=== PATIENT | male | born 1985 | race Caucasian/White ===

== ENCOUNTER 2016-05-08 11:04 | Emergency (ER) | payer OTHER ==
[2016-05-08] MEDS ORDERED: HYDROmorphONE/DILAUDID 1 MG/ML SYR ONE (11:13)
[2016-05-08] MEDS ORDERED: HYDROmorphONE/DILAUDID 1 MG/ML SYR IVP ONE (11:18)
[2016-05-08] MEDS ORDERED: ONDANSETRON 4 MG/2 ML VIAL IVP ONE (11:19)
[2016-05-08] MEDS ORDERED: ceFAZolin 1 GM in NS 100 ML IV ONE (11:19)
--- NOTE | 2016-05-08 13:07 | EDPHY ---
H & P Stated Complaint: L 4th and 5th finger injury vs circular saw Time Seen by Provider: 05/08/16 11:12 HPI/ROS: Chief complaint: Left 4th and 5th finger lacerations History of present illness: This is a 30-year-old male who presents to the emergency department for evaluation of left 4th and 5th finger lacerations. Just prior to arrival he was using an electric circular saw when it slipped cutting him on the tips of both of the listed fingers. He reports significant pain. There has been bleeding from the wounds that has been controlled with a dressing. He does report some numbness in the 4th finger. He has not tried to move them. He denies other injuries. His tetanus is up-to-date. Review of systems: A 10 point review of systems was obtained and other than described above was negative - Personal History Current Tetanus/Diphtheria Vaccine: Yes Current Tetanus Diphtheria and Acellular Pertussis (TDAP): Yes Tetanus Vaccine Date: 2014 - Medical/Surgical History Hx Asthma: No Hx Chronic Respiratory Disease: No Hx Diabetes: No Hx Cardiac Disease: No Hx Renal Disease: No Hx Cirrhosis: No Hx Alcoholism: No Hx HIV/AIDS: No Hx Splenectomy or Spleen Trauma: No Other PMH: denies - Social History Smoking Status: Current every day smoker - Physical Exam Exam: General: Alert, nontoxic Skin: There is a 3 cm laceration to the left 4th finger that extends from the pad around to the edge of the nail bed. There is a 1 cm laceration to the pad of the left 5th finger. Inspection of the wound does not reveal foreign body. I do not visualize deep structures such as tendons. Musculoskeletal: Patient can flex and extend his fingers in the DIP, PIP and MCP joint of the left 4th and 5th finger. He is moving the other digits well. Vascular: Delayed capillary refill in the pad of the left 4th finger. Good capillary refill in the pad of the left 5th finger. Radial pulses 2+. Neurologic: Decreased sensation using light touch and two-point discrimination in the left 4th finger. Good sensation in the left 5th finger using light touch and two-point discrimination. Constitutional: Initial Vital Signs Temperature (C) 36.9 C 05/08/16 11:08 Heart Rate 99 05/08/16 11:08 Respiratory Rate 24 H 05/08/16 11:08 Blood Pressure 141/99 H 05/08/16 11:08 O2 Sat (%) 99 05/08/16 11:08 O2 Delivery Mode Room Air Allergies/Adverse Reactions: No Known Allergies Allergy (Unverified 05/08/16 11:17) Home Medications: Medication Instructions Recorded Cephalexin [Keflex (*)] 500 mg PO QID 5 Days 05/08/16 oxyCODONE IR [Oxycodone Ir (*)] 5 mg PO Q6 #10 tab 05/08/16 Medical Decision Making - Diagnostics Imaging: X-ray series of the left hand reveals a chip fracture of the distal phalanx the left 4th finger Procedures: Procedure: Laceration repair. Verbal consent was obtained from the patient. The 3 cm laceration on the left 4th finger was anesthetized in the usual fashion. The wound was irrigated, draped and explored to its base with a gloved finger. There were no deep structures involved. No tendon injury was identified. The wound was repaired with 5 0 Prolene, 15 simple interrupted sutures. The wound repair was complex requiring debridement of tissue in realignment of cosmetic structures. The procedure was performed by myself. Procedure: Laceration repair. Verbal consent was obtained from the patient. The 1 cm laceration on the left 5th finger was anesthetized in the usual fashion. The wound was irrigated, draped and explored to its base with a gloved finger. There were no deep structures involved. No tendon injury was identified. The wound was repaired with 5 0 Prolene, 4 simple interrupted sutures. The wound repair was simple. The procedure was performed by myself. Fingers were dressed by the critical dog daycare provider. Procedure: Splint placement. A finger splints were applied. After application of the splint I returned and re-examined the patient. The splint was adequately immobilizing the joint and distal to the splint the patient's circulation and sensation was intact. ED Course/Re-evaluation: Patient presents to the emergency department for laceration to the left 4th and 5th finger. On presentation his hands were heavily contaminated with dirt. There is concern for neurovascular compromise to the pad region of the left 4th finger. X-ray does show a small chip fracture of the left 4th distal phalanx. The wounds were anesthetized. They were copiously irrigated. They were repaired, dressed and splinted as above. Patient started on antibiotics given heavy contamination initially of wounds, initially ancef and he will be discharged home on Keflex. Pain management has been discussed with patient. I have consulted with Dr. Ayesha Ferris, on-call hand surgeon, she is comfortable with the plan cleaning, primary closure in the emergency department, splinting, starting antibiotics and following up in clinic. Patient can follow up in her clinic for further evaluation and care. Return precautions were given to patient. He voiced understanding and agreement with plan. Differential Diagnosis: Included but not limited to laceration, deep structure injury, foreign body contamination - Data Points Medications Given: Discontinued Medications Hydromorphone HCl (Dilaudid) 1 mg IVP EDNOW ONE Stop: 05/08/16 11:19 Last Admin: 05/08/16 11:25 Dose: 1 mg Cefazolin Sodium/Dextrose (Ancef 1 Gm (Premix)) 50 mls @ 200 mls/hr IV ONCE ONE Stop: 05/08/16 12:14 Last Admin: 05/08/16 11:42 Dose: 50 mls Ondansetron HCl (Zofran) 4 mg IVP EDNOW ONE Stop: 05/08/16 11:20 Last Admin: 05/08/16 11:25 Dose: 4 mg Departure - Departure Disposition: Home, Routine, Self-Care Clinical Impression: Open finger fracture Qualifiers: Encounter type: initial encounter Finger: ring finger Phalanx: distal Fracture alignment: nondisplaced Laterality: left Qualified Code(s): S62.665B - Nondisplaced fracture of distal phalanx of left ring finger, initial encounter for open fracture Finger laceration Qualifiers: Encounter type: initial encounter Qualified Code(s): S61.219A - Laceration without foreign body of unspecified finger without damage to nail, initial encounter Condition: Good Instructions: Care For Your Stitches (ED), Laceration (ED), Finger Fracture (ED ), Acute Wound Care (ED) Additional Instructions: Follow-up with hand surgery for continued evaluation and care In regards to pain control see the following: Use ibuprofen 600 mg 3 times a day for the next 2-3 days for pain In addition You have been prescribed oxycodone for pain. It is sedating. Take antibiotics as prescribed until finished even feeling better Stitches to be removed in 10 days unless told otherwise by Hand surgery If symptoms worsen or new symptoms develop return to the emergency department for recheck Referrals: NONE *PRIMARY CARE P,. [Primary Care Provider] - As per Instructions Ayesha Ferris MD [Medical Doctor] - As per Instructions Prescriptions: Cephalexin [Keflex (*)] 500 mg PO QID 5 Days oxyCODONE IR [Oxycodone Ir (*)] 5 mg PO Q6 #10 tab
[2016-05-08 14:01] VITALS: BP 126/74; PULSE 82; RESP 16; TEMP 98.2; O2SAT 95
== END 2016-05-08 13:42 | disposition home or self-care (01) ==
PROC: 0HQGXZZ Repair Left Hand Skin, External Approach (ICD-10-PCS; principal; 2016-05-08)
DX: S62.665B Nondisplaced fracture of distal phalanx of left ring finger, initial encounter for open fracture (principal); S61.215A Laceration without foreign body of left ring finger without damage to nail, initial encounter; S61.217A Laceration without foreign body of left little finger without damage to nail, initial encounter; F17.200 Nicotine dependence, unspecified, uncomplicated; W31.2XXA Contact with powered woodworking and forming machines, initial encounter
CPT/HCPCS: 96365; J0690; J1170; J2405